=== PATIENT | female | born 1940 | race Two or more races ===

== ENCOUNTER 2024-02-28 10:15 | Emergency (ER) | payer OTHER ==
[~2024-02-28] VITALS: Ht 160 cm; Wt 95.3 kg
[~2024-02-28 10:15] MED LIST: CARV3.12 PO; CLOP75TA PO; DOCU100C82; LOSA50TA66; LOVA10TA2; MECLIZINE HYDROCHLORIDE PO; ZOLP10TA6 PO; [UNRECOGNIZED DRUG - CODE] PO
[2024-02-28 10:23] VITALS: BP 131/96; PULSE 71; RESP 16; TEMP 97.7; O2SAT 96
[2024-02-28 11:35] VITALS: O2SAT 96
[2024-02-28 11:47] LABS: APPEARANCE,URINE HAZY (CLEAR); BILIRUBIN,URINE NEGATIVE (NEGATIVE); BLOOD, URINE 3+ (NEGATIVE); COLOR,URINE YELLOW (YELLOW); LEUKOCYTE ESTERASE ,URINE 2+ (NEGATIVE); NITRITE, URINE NEGATIVE (NEGATIVE); PH,URINE 8.5 (5.0-9.0); PROTEIN,URINE 1+ (NEGATIVE); UGLUCOSE NEGATIVE (NEGATIVE); UROBILINOGEN,URINE 0.2 EU/dL (0.2 - 1)
[2024-02-28 11:55] LABS: BACTERIA,URINE FEW /HPF (None Seen); RBC,URINE TOO NUMEROUS TO COUN /HPF (0-5); SQUAMOUS EPITHELIAL CELL,UR 0-3 (FEW) /LPF (0-3 (FEW)); WBC,URINE 60-80 /HPF (0-5)
[2024-02-28] MEDS ORDERED: CEPH-588 PO (12:37)
== END 2024-02-28 12:50 | disposition home or self-care (01) ==
LOC: MED 10:15
DX: L03.116 Cellulitis of left lower limb (principal); L03.115 Cellulitis of right lower limb; N39.0 Urinary tract infection, site not specified; E11.9 Type 2 diabetes mellitus without complications; I10 Essential (primary) hypertension; Z86.73 Personal history of transient ischemic attack (TIA), and cerebral infarction without residual deficits; Z90.710 Acquired absence of both cervix and uterus; Z98.890 Other specified postprocedural states; Z79.899 Other long term (current) drug therapy; Z88.5 Allergy status to narcotic agent
CPT/HCPCS: 81001; 87086; 99283